=== PATIENT | female | born 1950 | race Caucasian/White ===

== ENCOUNTER 2017-05-06 02:56 | Outpatient (CLI) | payer OTHER | END 2017-05-06 02:57 | disposition critical access hospital (66) | LOC: EMS 02:56 | PROVIDERS: ATTEND Surgery | DX: R07.9 Chest pain, unspecified (principal); R19.7 Diarrhea, unspecified; R11.2 Nausea with vomiting, unspecified | CPT/HCPCS: A0425; A0427 ==

== ENCOUNTER 2017-05-06 03:18 | Emergency (ER) | payer OTHER ==
[2017-05-06] MEDS ORDERED: MORPHINE 2 MG/ML CARPUJECT IVP STA ×2 (03:27→05:44)
[2017-05-06] MEDS ORDERED: ONDANSETRON 4 MG/2 ML VIAL IVP STA (03:27)
[2017-05-06] MEDS ORDERED: FAMOTIDINE 20 MG/2 ML VIAL IVP STA (03:31)
--- NOTE | 2017-05-06 03:42 | ED Physician Documentation ---
PD HPI NVD - Stated complaint Stated Complaint: DIARRHEA, CP, N/V - History obtained from History obtained from: Patient, Family, EMS - History of Present Illness Timing - onset: How many hours ago (4) Timing - details: Gradual onset, Still present Associated symptoms: Chest pain. No: Fever, Dizzy, Near syncope / syncope Contributing factors: No: Sick contact, Bad food Similar symptoms before: No diagnosis Recently seen: Not recently seen - Additonal information Additional information: Patient is a 66 year old female who is presenting to the emergency department for chest pain, nausea, vomiting and diarrhea. patient states that before she went to bed this evening she had a funny feeling in her throat, she went to lie down and developed sharp chest pain. patient states that she got up and had an episode of diarrhea. Patient then proceeded to have multiple episodes of vomiting and continued chest pressure. Patient denied any history of heart attack but states that she was found to have heart block and a pacemaker was placed. they ar usure of the etiology of the heartblock. Review of Systems Constitutional: denies: Fever, Chills Eyes: denies: Decreased vision Ears: denies: Ear pain Nose: denies: Rhinorrhea / runny nose, Congestion Throat: reports: Sore throat Cardiac: reports: Chest pain / pressure. denies: Pedal edema Respiratory: reports: Dyspnea. denies: Wheezing GI: reports: Nausea, Vomiting, Diarrhea. denies: Abdominal Pain : denies: Dysuria, Frequency, Hesitancy Neurologic: denies: Generalized weakness, Focal weakness, Headache, Head injury Immunocompromised: denies: Immunocompromised PD PAST MEDICAL HISTORY - Present Medications Home Medications: Ambulatory Orders Medication Instructions Recorded Confirmed Dicyclomine [Bentyl] 10 mg PO QID #20 capsule 05/06/17 Losartan/Hydrochlorothiazide 1 mg PO DAILY 05/06/17 05/06/17 [Losartan-Hctz 50-12.5 mg Tab] Ondansetron Odt [Zofran] 4 mg TL Q6H PRN #20 tablet 05/06/17 Rivaroxaban [Xarelto] 1 mg PO DAILY 05/06/17 05/06/17 - Allergies Allergies/Adverse Reactions: Allergies Allergy/AdvReac Type Severity Reaction Status Date / Time No Known Drug Allergies Allergy Verified 05/06/17 03:32 PD ED PE NORMAL - Vitals Vital signs reviewed: Yes - General General: Alert and oriented X 3 - HEENT HEENT: Atraumatic, PERRL - Neck Neck: Supple, no meningeal sign - Respiratory Respiratory: No respiratory distress, Clear bilaterally - Abdomen Abdomen: Soft, Non tender - Derm Derm: Normal color, No rash - Extremities Extremities: No deformity, No calf tenderness / cord - Neuro Neuro: Alert and oriented X 3, Normal speech PD ED PE EXPANDED - General General: Alert, Anxious, In Pain - HEENT HEENT: Dry mucous membranes Results - Vitals Vitals: Vital Signs - 24 hr 05/06/17 05/06/17 05/06/17 03:27 03:45 04:08 Temperature 36.3 C L Heart Rate 87 95 82 Respiratory 22 19 15 Rate Blood Pressure 125/71 127/72 121/66 O2 Saturation 91 L 97 97 05/06/17 05/06/17 05/06/17 04:10 04:18 04:30 Temperature Heart Rate 84 85 85 Respiratory 16 16 Rate Blood Pressure 133/77 H O2 Saturation 97 99 99 05/06/17 05/06/17 05/06/17 04:45 04:59 05:00 Temperature Heart Rate 85 82 Respiratory 19 17 Rate Blood Pressure 126/80 O2 Saturation 98 98 05/06/17 05/06/17 05/06/17 05:18 05:42 06:02 Temperature Heart Rate 78 80 Respiratory 16 33 H 18 Rate Blood Pressure 123/67 117/58 L O2 Saturation 99 98 Oxygen O2 Source Nasal cannula Oxygen Flow Rate 2 - EKG (time done) 0326 Rate: Rate (enter#) (100) Rhythm: Paced Compare to prior EKG: Old EKG unavailable - Labs Labs: Laboratory Tests 05/06/17 05/06/17 05/06/17 03:33 04:16 04:16 WBC 10.5 RBC 4.84 Hgb 14.7 Hct 44.6 MCV 92.0 MCH 30.4 MCHC 33.0 RDW 12.5 Plt Count 180 MPV 8.5 Neut # 8.7 H Lymph # 1.0 L [place] # 0.8 Eos # 0.0 Baso # 0.1 Absolute Nucleated RBC 0.00 Nucleated RBC % 0.0 PT 12.5 INR 1.1 APTT 30.3 D-Dimer 201.8 VBG pH VBG pCO2 VBG pO2 VBG HCO3 VBG Total CO2 VBG O2 Saturation VBG Base Excess Sodium Potassium Chloride Carbon Dioxide Anion Gap BUN Creatinine Estimated GFR (MDRD) Glucose Calcium Magnesium Total Bilirubin AST ALT Alkaline Phosphatase Troponin I B-Natriuretic Peptide Total Protein Albumin Globulin Albumin/Globulin Ratio Lipase Influenza A (Rapid) Negative Influenza B (Rapid) Negative Influenza Types A,B Ag - 05/06/17 05/06/17 05/06/17 04:16 04:16 04:16 WBC RBC Hgb Hct MCV MCH MCHC RDW Plt Count MPV Neut # Lymph # [place] # Eos # Baso # Absolute Nucleated RBC Nucleated RBC % PT INR APTT D-Dimer VBG pH VBG pCO2 VBG pO2 VBG HCO3 VBG Total CO2 VBG O2 Saturation VBG Base Excess Sodium 138 Potassium 4.2 Chloride 101 Carbon Dioxide 25 Anion Gap 12.0 BUN 16 Creatinine 0.9 Estimated GFR (MDRD) 62 L Glucose 142 H Calcium 9.1 Magnesium 1.7 Total Bilirubin 0.7 AST 38 ALT 36 Alkaline Phosphatase 65 Troponin I < 0.04 B-Natriuretic Peptide 54 Total Protein 6.9 Albumin 4.0 Globulin 2.9 Albumin/Globulin Ratio 1.4 Lipase 21 L Influenza A (Rapid) Influenza B (Rapid) Influenza Types A,B Ag 05/06/17 05/06/17 04:16 05:35 WBC RBC Hgb Hct MCV MCH MCHC RDW Plt Count MPV Neut # Lymph # [place] # Eos # Baso # Absolute Nucleated RBC Nucleated RBC % PT INR APTT D-Dimer VBG pH 7.328 VBG pCO2 49.1 VBG pO2 26.8 VBG HCO3 25.2 VBG Total CO2 26.7 VBG O2 Saturation 50.4 L VBG Base Excess -1.4 Sodium Potassium Chloride Carbon Dioxide Anion Gap BUN Creatinine Estimated GFR (MDRD) Glucose Calcium Magnesium Total Bilirubin AST ALT Alkaline Phosphatase Troponin I < 0.04 B-Natriuretic Peptide Total Protein Albumin Globulin Albumin/Globulin Ratio Lipase Influenza A (Rapid) Influenza B (Rapid) Influenza Types A,B Ag - Rads (name of study) chest Radiology: Final report received (mild cardiomegaly no overt failure.) PD MEDICAL DECISION MAKING - ED course Complexity details: reviewed old records, reviewed results, re-evaluated patient , considered differential, d/w patient ED course: Patient was seen and examined at bedside. ekg was performed which showed a paced rhythm. IV access was gained and labs were drawn. patient was treated with pepcid, morphine and zofran. chest x-ray was ordered. when patient returned the results were reviewed. there was no acute abnormality. Patient's original diagnostics including dimer, troponin and bnp were all negative. Patient was treated with viscous lidocaine and bentyl with moderate relief. Repeat troponin remained negative. patient's pain was unlikely cardiac in nature. Patient required no further inpatient work up and was stable for discharge with outpatient follow up. Departure - Departure Disposition: Home, Self Care Clinical Impression: Gastroenteritis Condition: Good Instructions: ED Gastroenteritis Bacterial Follow-Up: primary,care provider [Other] - As Needed Prescriptions: Dicyclomine [Bentyl] 10 mg PO QID #20 capsule Ondansetron Odt [Zofran] 4 mg TL Q6H PRN #20 tablet PRN Reason: Nausea / Vomiting Comments: Your diagnostics today were within normal limits indicating your symptoms were less likely cardiac in nature and more likely GI in nature. You have been prescribed zofran and bentyl and you can also take over the counter antacids. 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 You may return to the emergency department at any time for new, worsening or uncontrollable symptoms.
--- NOTE | 2017-05-06 03:59 | XRAY Report ---
EXAM: CHEST RADIOGRAPHY EXAM DATE: 05/06/2017 03:50 AM. CLINICAL HISTORY: Chest pain. COMPARISON: None. TECHNIQUE: 2 views. FINDINGS: Lungs/Pleura: No definite alveolar consolidation or pleural effusion. No pneumothorax. Mediastinum: Mild cardiomegaly. Other: Implanted bipolar pacemaker on the left with leads in expected positions. IMPRESSION: 1. Mild cardiomegaly with pacemaker in place. 2. No acute abnormality seen. [facility] Referring Provider Line: [phone] SITE ID: [id number]
--- NOTE | 2017-05-06 03:59 | XRAY Preliminary Report ---
Exam: XR CHEST 2 VIEW X-RAY IMPRESSION: 1. Mild cardiomegaly with pacemaker in place. 2. No acute abnormality seen. [facility] SITE ID: [id number]
[2017-05-06 04:25] LABS: BASOPHILS # (AUTO) 0.1 10^3/uL (0.0-0.1); BASOPHILS % (AUTO) 0.5 %; EOSINOPHILS % (AUTO) 0.2 %; HGB - HEMOGLOBIN 14.7 g/dL (12.0-16.0); LYMPHOCYTES % (AUTO) 9.2 %; MEAN CORPUSCULAR HEMOGLOBIN 30.4 pg (27.0-31.0); MEAN PLATELET VOLUME 8.5 fL (7.9-10.8); MONOCYTES # (AUTO) 0.8 10^3/uL (0.0-1.0); MONOCYTES % (AUTO) 7.4 %; NEUTROPHILS # (AUTO) 8.7 10^3/uL (1.5-6.6); NEUTROPHILS % (AUTO) 82.7 %; PLT - PLATELET COUNT 180 10^3/uL (130-450); RED BLOOD COUNT 4.84 10^6/uL (4.20-5.40); RED CELL DISTRIBUTION WIDTH 12.5 % (12.0-15.0); WHITE BLOOD COUNT 10.5 x10^3/uL (4.8-10.8)
[2017-05-06 04:27] LABS: INR 1.1 (0.8-1.2); PT - PROTHROMBIN TIME 12.5 secs (9.9-12.6)
[2017-05-06 04:31] LABS: VBG BASE EXCESS -1.4 mmol/L (-2 - +2); VBG PCO2 49.1 mmHg (41-51); VBG PH 7.328 (7.31-7.41); VBG PO2 26.8 mmHg (25-47); VBG TOTAL CO2 26.7 mmol/L (24-29)
[2017-05-06 04:34] LABS: D-DIMER 201.8 ng/mL (200.0-255.0)
[2017-05-06 04:36] LABS: ALBUMIN/GLOBULIN RATIO 1.4 (1.0-2.2); BILIRUBIN,TOTAL 0.7 mg/dL (0.2-1.0); CALCIUM 9.1 mg/dL (8.5-10.3); CREATININE 0.9 mg/dL (0.4-1.0); MAGNESIUM 1.7 mg/dL (1.7-2.8); TOTAL PROTEIN 6.9 g/dL (6.7-8.2)
[2017-05-06] MEDS ORDERED: DICYCLOMINE 10 MG CAPSULE PO STA (04:45)
[2017-05-06] MEDS ORDERED: LIDOCAINE VISCOUS 2% 15 ML UDC MM STA (04:45)
[2017-05-06] MEDS ORDERED: SODIUM CHLORIDE 0.9% 1,000 ML IV ONE (04:45)
[2017-05-06 06:03] VITALS: BP 117/58
== END 2017-05-06 06:30 | disposition home or self-care (01) ==
LOC: ED 03:18
DX: K52.9 Noninfective gastroenteritis and colitis, unspecified (principal); I51.9 Heart disease, unspecified; Z95.0 Presence of cardiac pacemaker
CPT/HCPCS: 36415; 71046; 80053; 82803; 83690; 83735; 83880; 84484; 85025; 85379; 85610; 85730; 87275; 87276; 93005; 96361; 96374; 96376; 99284; 99285; A9270